=== PATIENT | female | born 1945 | race Caucasian/White ===

== ENCOUNTER 2017-07-09 12:19 | Outpatient (CLI) | payer OTHER | END 2017-07-09 12:20 | disposition home or self-care (01) | LOC: LAB 12:19 | PROVIDERS: ATTEND Family Medicine | DX: E11.9 Type 2 diabetes mellitus without complications (principal); E78.00 Pure hypercholesterolemia, unspecified; I10 Essential (primary) hypertension | CPT/HCPCS: 36415; 80053; 80061; 83036; 85025 ==

== ENCOUNTER 2017-10-15 10:31 | Outpatient (CLI) | END 2017-10-15 10:32 | disposition home or self-care (01) | LOC: FCC-LAB 10:31 | PROVIDERS: ATTEND Family Medicine | DX: I10 Essential (primary) hypertension (principal); E11.9 Type 2 diabetes mellitus without complications; E78.00 Pure hypercholesterolemia, unspecified | CPT/HCPCS: 36415; 80053; 80061; 83037; 85025 ==

== ENCOUNTER 2017-11-05 08:59 | Outpatient (CLI) | payer OTHER | END 2017-11-05 09:00 | disposition home or self-care (01) | LOC: FCC-LAB 08:59 | PROVIDERS: ATTEND Family Medicine | DX: E87.5 Hyperkalemia (principal); E83.52 Hypercalcemia | CPT/HCPCS: 36415; 80053 ==

== ENCOUNTER 2018-01-21 10:49 | Outpatient (CLI) | payer OTHER | END 2018-01-21 10:50 | disposition home or self-care (01) | LOC: FCC-LAB 10:49 | PROVIDERS: ATTEND Family Medicine | DX: E87.5 Hyperkalemia (principal); E83.52 Hypercalcemia | CPT/HCPCS: 36415; 80053 ==

== ENCOUNTER 2018-01-28 17:46 | Outpatient (CLI) | END 2018-01-28 17:47 | disposition home or self-care (01) | LOC: FCC-LAB 17:46 | PROVIDERS: ATTEND Family Medicine | DX: E11.9 Type 2 diabetes mellitus without complications (principal) | CPT/HCPCS: 36415; 83037 ==

== ENCOUNTER 2018-06-03 07:54 | Outpatient (CLI) | END 2018-06-03 07:55 | disposition home or self-care (01) | LOC: RHC-LAB 07:54 → FCC-LAB 07:55 | PROVIDERS: ATTEND Family Medicine | DX: E11.9 Type 2 diabetes mellitus without complications (principal); E83.52 Hypercalcemia; E87.5 Hyperkalemia | CPT/HCPCS: 36415; 80053; 83037 ==

== ENCOUNTER 2018-06-09 14:15 | Outpatient (CLI) | END 2018-06-09 14:16 | disposition home or self-care (01) | LOC: RHC-LAB 14:15 → FCC-LAB 14:16 | PROVIDERS: ATTEND Family Medicine | DX: E83.52 Hypercalcemia (principal); E87.5 Hyperkalemia | CPT/HCPCS: 36415; 82310; 84132 ==

== ENCOUNTER 2018-06-15 14:20 | Outpatient (CLI) | END 2018-06-15 14:21 | disposition home or self-care (01) | LOC: RHC-LAB 14:20 → FCC-LAB 14:21 | PROVIDERS: ATTEND Family Medicine | DX: E83.52 Hypercalcemia (principal) | CPT/HCPCS: 36415; 82306; 83970; 84100 ==

== ENCOUNTER 2018-09-21 07:56 | Outpatient (CLI) | payer OTHER | END 2018-09-21 07:57 | disposition home or self-care (01) | LOC: RHC-LAB 07:56 | PROVIDERS: ATTEND Family Medicine | DX: E11.9 Type 2 diabetes mellitus without complications (principal); E78.00 Pure hypercholesterolemia, unspecified | CPT/HCPCS: 36415; 80053; 80061; 82043; 83037; 85025 ==